=== PATIENT | female | born 1940 | race Caucasian/White ===

== ENCOUNTER 2022-07-29 11:44 | Day surgery (SDC) | payer MEDICARE, BC, OTHER ==
[~2022-07-29] VITALS: Ht 144.8 cm; Wt 40.7 kg
[~2022-07-29 11:44] MED LIST: CEFUROXIME 1MG/0.1ML INTRACAMERAL INJ As Ordered ONE; LIDOCAINE 1% SDV 5ML VIAL As Ordered ONE; PHENYLEPHRINE 10% OPHTH SOL 5ML OS PRN
[2022-07-29] MEDS ORDERED: LIDOCAINE 3.5 % 1ML OPHTH TOPICAL GEL OU ONE (12:10)
[2022-07-29] MEDS ORDERED: OFLOXACIN 0.3 % (OCUFLOX) OPTH SOL 5ML OS ONE (12:10)
[2022-07-29] MEDS ORDERED: BSS IRRIG/VANCO(10MG)/TOBRA(5MG)/EPINEPH(1:1000-0.5CC)500ML BAG-ORONLY IR ONE (12:10)
[2022-07-29] MEDS ORDERED: MIDAZOLAM INJ 2MG/2ML VIAL As Ordered ONE (12:19)
[2022-07-29] MEDS ORDERED: fentaNYL 100 MCG/2 ML INJECTION As Ordered ONE (12:20)
[2022-07-29 14:00] VITALS: BP 137/63
[2022-07-29] MEDS: TROPICAMIDE 1% OPHTH SOLN 15ML OS SCH ×2 (14:06→14:07)
[2022-07-29] MEDS: PHENYLEPHRINE 2.5% OPHTH SOL 2ML OS SCH ×2 (14:06→14:07)
[2022-07-29] MEDS: CYCLOPENTOLATE 1% OPHTH SOLN 2ML BTL OS SCH ×2 (14:06→14:07)
== END 2022-07-29 14:05 | disposition home or self-care (01) ==
LOC: M SDC 11:44
PROVIDERS: ATTEND Ophthalmology
DX: H25.12 Age-related nuclear cataract, left eye (principal); G47.30 Sleep apnea, unspecified; I50.9 Heart failure, unspecified; E11.9 Type 2 diabetes mellitus without complications; Z79.899 Other long term (current) drug therapy; K21.9 Gastro-esophageal reflux disease without esophagitis
CPT/HCPCS: 66984; J0697; J2250; J3010; V2632

== ENCOUNTER 2022-08-05 09:39 | Day surgery (SDC) | payer MEDICARE, BC, OTHER ==
[~2022-08-05] VITALS: Ht 154.9 cm; Wt 43.1 kg
[~2022-08-05 09:39] MED LIST changes: +BSS IRRIG/VANCO(10MG)/TOBRA(5MG)/EPINEPH(1:1000-0.5CC)500ML BAG-ORONLY IR ONE; +CYCLOPENTOLATE 1% OPHTH SOLN 2ML BTL OD SCH; +LIDOCAINE 3.5 % 1ML OPHTH TOPICAL GEL OU ONE; +OFLOXACIN 0.3 % (OCUFLOX) OPTH SOL 5ML OD ONE; +PHENYLEPHRINE 10% OPHTH SOL 5ML OD PRN; -PHENYLEPHRINE 10% OPHTH SOL 5ML OS PRN; +PHENYLEPHRINE 2.5% OPHTH SOL 2ML OD SCH; +TROPICAMIDE 1% OPHTH SOLN 15ML OD SCH
[2022-08-05] MEDS ORDERED: MIDAZOLAM 5MG/ML 1ML VIAL As Ordered ONE (10:28)
[2022-08-05] MEDS ORDERED: fentaNYL 100 MCG/2 ML INJECTION As Ordered ONE (11:01)
[2022-08-05 11:18] VITALS: BP 124/59
== END 2022-08-05 11:36 | disposition home or self-care (01) ==
LOC: M SDC 09:39
PROVIDERS: ATTEND Ophthalmology
DX: H25.11 Age-related nuclear cataract, right eye (principal); R94.31 Abnormal electrocardiogram [ECG] [EKG]; F17.210 Nicotine dependence, cigarettes, uncomplicated
CPT/HCPCS: 66984; J0697; J2250; J3010; V2632